=== PATIENT | female | born 1955 ===

== ENCOUNTER 2022-07-04 04:30 | Day surgery (SDC) | payer OTHER ==
[~2022-07-04] VITALS: Ht 157.5 cm; Wt 83.0 kg
== END 2022-07-04 12:35 | disposition home or self-care (01) ==
LOC: CIR.AMB 04:30
PROVIDERS: ATTEND Otolaryngology
DX: E04.2 Nontoxic multinodular goiter (principal); E06.3 Autoimmune thyroiditis; Z20.822 Contact with and (suspected) exposure to COVID-19